=== PATIENT | male | born 2000 | race Caucasian/White ===

== ENCOUNTER 2018-06-27 19:16 | Emergency (ER) | payer SELFPAY | END 2018-06-27 20:03 | disposition home or self-care (01) | DX: S06.0X0A Concussion without loss of consciousness, initial encounter (principal); S01.81XA Laceration without foreign body of other part of head, initial encounter; S50.812A Abrasion of left forearm, initial encounter; V00.131A Fall from skateboard, initial encounter; Y93.51 Activity, roller skating (inline) and skateboarding ==